=== PATIENT | male | born 1985 ===

== ENCOUNTER 2024-12-11 09:52 | Outpatient (AMB) | payer MEDICAID, SELFPAY ==
[2024-12-11 10:01] VITALS: BP 135/84; PULSE 80; RESP 16; TEMP 36.7; O2SAT 97; BMI 26.0
--- NOTE | 2024-12-11 10:01 | ACNOTE_ITS ---
Vital Signs 12/11/24 10:01 Height 1.68 m Height Method Stated Weight 73.227 kg Weight Measurement Method Standing Scale BMI 26.0 BP 135/84 H Blood Pressure Source Automatic Cuff Blood Pressure Location Left Upper Arm Position Sitting Respiration 16 Pulse 80 Pulse Source Monitor Temp 98.0 F Temp Source Oral Pulse Oximetry (%) 97 Oxygen Delivery Method Room Air Allergies/Meds Allergies & Medications Allergies amoxicillin Allergy (Mild, Verified 12/11/24 10:03) HIVES clavulanic acid Allergy (Mild, Verified 12/11/24 10:03) HIVES Medication Reconciliation clindamycin HCl 300 mg capsule 300 mg PO QID #40 caps 12/05/22 [Rx Confirmed 12/11/24] salicylic acid 40 % topical plaster 1 applic topical Q48H #18 ea 12/11/24 [Rx] MA Intake Visit Data Collection Pain Present Currently: Yes Pain Location: Foot Pain scale:: 6 PCP or OBGYN visit in last 3 months: No Smoking Status Smoking Status: Never smoker Immunization / Flu Flu Vaccine in the Last 12 Months: Yes Flu Vaccine Exclusion Criteria: No Exclusion Criteria Past Medical History Past Medical History CARDIAC: Negative Cardiac Disorders or Congestive Heart Failure RESPIRATORY: Negative Chronic Obstructive Pulmonary Disease (COPD) or Asthma GENITOURINARY: Negative Renal Disease ENDOCRINE: Negative Diabetes Mellitus Type 1 or Diabetes Mellitus Type 2 HEMATOLOGIC: Negative Sickle Cell Disease Social History SMOKING STATUS: Smoking status: Never smoker Patient Portal Questionaires Social History Tobacco History Smoking Status: Never smoker Review of Systems Report any current symptoms Only answer those that you have currently: Past Medical History Past Medical History Have you ever been diagnosed with any of the following: Cardiology Problems Congestive Heart Failure: No Respiratory Problems Chronic Obstructive Pulmonary Disease (COPD): No Asthma: No Genital/Urinary Problems Renal Disease: No Endocrine Problems Diabetes Mellitus Type 1: No Diabetes Mellitus Type 2: No Blood Problems Sickle Cell Disease: No History of Present Illness HPI Narrative The patient is a 39-year-old male with no significant past medical she presented to clinic today with chief complaint of right plantar wart. He reported that he has been using salicylic acid 17% extra strength solution that he bought from [employer] as an [id number]. However, after applying for about 3 to 4 weeks, it did not work and thought of presenting to the clinic this morning. He denies any headache, nausea, vomiting, chest pain, SOB, abdominal pain, any changes in bowel or bladder habit, fever or chills, any secration from the site of lesion. Review of Systems Review of Systems Systems Reviewed: All systems reviewed, normal except as documented Objective/Exam Narrative Physical exam: General: No acute distress, Alert and Oriented x 3 HEENT: Moist mucous membranes, oropharynx clear Neck: Supple, No masses, No JVD CVS: S1S2 Regular rate and rhythm, No murmurs, rubs or gallops Lungs: Clear to auscultation with no accessory use, no wheeze no rhonchi Abd: Soft, NT/ND, +BS, no organomegaly Ext: a small, raised, flesh-colored growth on the plantar surface of rt foot/ non tender Skin: No rash Psych: Appropriate mood and affect Assessment & Plan Diagnosis / Problem List (1) Warts of foot: Status: Acute Assessment & Plan: The patient presented with plantar wart, that did not heal after applying 17% salicylic acid solution for 3 to 4 weeks, [id number]. Plan: -Ordered salicylic acid 40% tape to be applied over the affected area every 48 hours. -Was recommended to soak the affected reason for 5 to 10 minutes, and tap it dry, and apply the tape -Referral to podiatric clinic, can follow-up if it does not show any signs of improvement in 2 to 3 weeks. The patient's management plan was discussed with my attending physician MD Kaleb Gray MD, PGY2 Orders: Referrals Podiatry B07.9 - Viral wart, unspecified Additional Assessment Internal Medicine Attending Note: Case discussed with and agree with note and management plan of Resident Physician as per Resident's Note above. Issues of concern for present visit are as follows: Acute visit. Plantar wart present for over a month. Has been trying OTC salicylic acid. Will prescribe stronger salicylic acid tape. Referral to podiatry for possible excision/laser/cryotherapy. Juanjo Suarez MD Physician Billing New Patient New Patient: E/M Level 2-CPT 88466 Office Procedures [facility] Level of Care Nursing/Assessment Patient Status: Established Patient Nursing Assessment/Reassessment: Medication Reconciliation, Update PMH in EMR and Vital Signs Coordination of Care: Complex Care and Chronic Disease 1-5, Consent,records obtained, informed consent, Education Simp Pt/Fam and Staff clarify orders Established Patient Charge Established Patient Point Assignment: 85 Established Patient Point Charge: EP Level 3 (80-115)
== END 2024-12-11 11:28 | disposition home or self-care (01) ==
PROVIDERS: Supervising Provider Internal Medicine; Visit Provider Student in an Organized Health Care Education/Training Program
DX: B07.0 Plantar wart (principal)
CPT/HCPCS: 99213; G0463